=== PATIENT | male | born 1955 | race Two or more races ===

== ENCOUNTER 2019-12-15 14:30 | Emergency (ER) | payer MEDICARE, MEDICAID ==
[~2019-12-15] VITALS: Ht 170.2 cm; Wt 89.0 kg
[2019-12-15] MEDS ORDERED: ACETAMINOPHEN 325MG TABLET PO STA (15:32)
[2019-12-15] MEDS ORDERED: ASPIRIN 81MG TABLET PO ONE (15:45)
[2019-12-15 16:27] LABS: BASOPHILS % 1.3 % (0.0-2.0); EOSINOPHILS % 0.8 % (0.0-5.0); HEMATOCRIT. 45.7 % (42.0-52.0); HEMOGLOBIN. 15.6 g/dL (14.0-18.0); LYMPHOCYTES % 13.7 % (20.0-50.0); MEAN CORPUSCULAR HEMOGLOBIN 29.3 pg (28.0-32.0); MEAN CORPUSCULAR VOLUME 85.6 fL (80.0-94.0); MEAN PLATELET VOLUME 8.1 fl (7.4-10.4); MONOCYTES % 7.3 % (2.0-8.0); NEUTROPHILS % 76.9 % (40.0-76.0); PLATELET 280 x1000/uL (130-400); RED BLOOD CELL COUNT 5.34 mill/uL (4.7-6.1); RED CELL DISTRIBUTION WIDTH 14.2 % (11.6-14.6)
[2019-12-15 16:35] LABS: PROTHROMBIN TIME 10.4 sec (9.6-11.0)
[2019-12-15 16:38] LABS: CHLORIDE 105 mEq/L (98-107)
[2019-12-15 17:00] VITALS: BP 135/89
== END 2019-12-15 17:07 | disposition home or self-care (01) ==
LOC: ER 14:30
DX: R07.9 Chest pain, unspecified (principal); I10 Essential (primary) hypertension
CPT/HCPCS: 36415; 71045; 80053; 83880; 84484; 85025; 93005; 99284

== ENCOUNTER 2021-04-12 12:19 | Emergency (ER) | payer OTHER, MEDICAID ==
[~2021-04-12] VITALS: Ht 175.3 cm; Wt 96.0 kg
[2021-04-12] MEDS ORDERED: ASPIRIN 81MG TABLET PO ONE (12:45)
[2021-04-12] MEDS ORDERED: METOPROLOL TARTRATE 25MG TABLET PO ONE (12:45)
[2021-04-12] MEDS ORDERED: SODIUM CHLORIDE 0.9% 1,000 ML IV ONE (12:45)
[2021-04-12 12:46] VITALS: BP 129/98
[2021-04-12 12:56] LABS: BASOPHILS % 0.9 % (0.0-2.0); EOSINOPHILS % 4.1 % (0.0-5.0); HEMATOCRIT. 45.7 % (42.0-52.0); HEMOGLOBIN. 15.3 g/dL (14.0-18.0); LYMPHOCYTES % 16.8 % (20.0-50.0); MEAN CORPUSCULAR HEMOGLOBIN 29.3 pg (28.0-32.0); MEAN CORPUSCULAR VOLUME 87.4 fL (80.0-94.0); MONOCYTES % 6.6 % (2.0-8.0); NEUTROPHILS % 71.6 % (40.0-76.0); PLATELET 250 x1000/uL (130-400); RED BLOOD CELL COUNT 5.23 mill/uL (4.7-6.1); RED CELL DISTRIBUTION WIDTH 14.9 % (11.6-14.6)
[2021-04-12 13:03] LABS: CHLORIDE 106 mEq/L (98-107)
[2021-04-12 13:06] LABS: D-DIMER 0.19 mg/L FEU (<0.50); PARTIAL THROMBOPLASTIN TIME 26.1 sec (23.4-31.0); PROTHROMBIN TIME 10.6 sec (9.6-11.0)
== END 2021-04-12 14:35 | disposition left against medical advice (07) ==
LOC: ER 12:48
DX: R07.89 Other chest pain (principal); I47.1 Supraventricular tachycardia; I10 Essential (primary) hypertension
CPT/HCPCS: 36415; 71045; 80053; 83880; 84484; 85025; 85379; 85610; 85730; 93005; 96360; 99285; J7030

== ENCOUNTER 2021-05-24 17:21 | Inpatient (IN) | payer OTHER, MEDICAID ==
[~2021-05-24] VITALS: Ht 172.7 cm; Wt 105.2 kg
[2021-05-24 18:13] LABS: EOSINOPHILS % 5.2 % (0.0-5.0); HEMATOCRIT. 42.2 % (42.0-52.0); HEMOGLOBIN. 14.4 g/dL (14.0-18.0); LYMPHOCYTES % 17.5 % (20.0-50.0); MEAN CORPUSCULAR HEMOGLOBIN 29.5 pg (28.0-32.0); MEAN CORPUSCULAR VOLUME 86.5 fL (80.0-94.0); MEAN PLATELET VOLUME 8.2 fl (7.4-10.4); MONOCYTES % 7.5 % (2.0-8.0); NEUTROPHILS % 68.8 % (40.0-76.0); PLATELET 259 x1000/uL (130-400); RED BLOOD CELL COUNT 4.87 mill/uL (4.7-6.1); RED CELL DISTRIBUTION WIDTH 15.1 % (11.6-14.6)
[2021-05-24 18:18] LABS: CHLORIDE 100 mEq/L (98-107)
[2021-05-24 18:22] LABS: ETHANOL BLOOD < 10 mg/dL
[2021-05-24] MEDS ORDERED: ASPIRIN 81MG TABLET PO ONE (19:00)
[2021-05-24] MEDS ORDERED: ENOXAPARIN 100MG/ML SYR SUBCUT ONE (19:00)
[2021-05-25] VITALS (9 sets, daily range): BP systolic 135–164; BP diastolic 77–111
[2021-05-25] MEDS ORDERED: NITROGLYCERIN OINT 1GM/INCH UDPKT TD PRN (05:30)
[2021-05-25] MEDS ORDERED: ASPIRIN 325MG TABLET PO NR (05:30)
[2021-05-25] MEDS ORDERED: NITROGLYCERIN OINT 1GM/INCH UDPKT TD SCH (05:45)
[2021-05-25] MEDS: NITROGLYCERIN OINT 1GM/INCH UDPKT TD SCH ×3 (05:47→17:29)
[2021-05-25 05:52] LABS: CLARITY URINE CLEAR (CLEAR); COLOR URINE YELLOW (YELLOW); KETONES URINE TRACE (NEGATIVE); LEUKOCYTE ESTERASE URINE NEGATIVE (NEGATIVE); NITRITE URINE NEGATIVE (NEGATIVE); OCCULT BLOOD URINE NEGATIVE (NEGATIVE); PH URINE 5.5 (4.5-8.0); PROTEIN URINE NEGATIVE (NEGATIVE); SPECIFIC GRAVITY URINE 1.011 (1.005-1.030)
[2021-05-25 06:00] LABS: *AMPHETAMINES SCREEN URINE PRESUMTIVE POSITIVE (NEGATIVE); *BARBITURATES SCREEN URINE NEGATIVE (NEGATIVE); *BENZODIAZEPINES SCREEN URINE NEGATIVE (NEGATIVE); *COCAINE SCREEN URINE NEGATIVE (NEGATIVE); METHADONE URINE SCREEN NEGATIVE (NEGATIVE)
[2021-05-25 06:01] LABS: CANNABINOID URINE SCREEN PRESUMTIVE POSITIVE (NEGATIVE); OPIATES URINE SCREEN NEGATIVE (NEGATIVE); PHENCYCLIDINE URINE SCREEN NEGATIVE (NEGATIVE)
[2021-05-25] MEDS: DILTIAZEM HCL 60MG TABLET PO SCH ×3 (09:44→23:26)
[2021-05-25] MEDS ORDERED: OMEP20CA14 MT (11:36)
[2021-05-25] MEDS ORDERED: ASPI-1497 PO (11:36)
[2021-05-25] MEDS ORDERED: GABA-532 MT (11:36)
[2021-05-25] MEDS ORDERED: FAMO20TA8 MT (11:36)
[2021-05-25] MEDS ORDERED: METO-385 PO (11:36)
[2021-05-25] MEDS: FAMOTIDINE 20MG TABLET PO SCH (16:31)
[2021-05-25] MEDS: GABAPENTIN 300MG CAPSULE PO SCH (16:31)
[2021-05-25] MEDS: REGADENOSON 0.4 MG/5 ML IV SCH (17:30)
[2021-05-25] MEDS ORDERED: ENOXAPARIN 40MG/0.4ML SYR SUBCUT SCH (19:45)
[2021-05-25] MEDS: ENOXAPARIN 30MG/0.3ML SYR SUBCUT SCH (21:41)
[2021-05-26] VITALS (8 sets, daily range): BP systolic 136–167; BP diastolic 68–107
[2021-05-26] MEDS: DILTIAZEM HCL 60MG TABLET PO SCH (06:00)
[2021-05-26] MEDS: NITROGLYCERIN OINT 1GM/INCH UDPKT TD SCH ×4 (06:00→18:23)
[2021-05-26] MEDS: GABAPENTIN 300MG CAPSULE PO SCH ×2 (09:00→18:23)
[2021-05-26] MEDS ORDERED: ASPIRIN 81MG EC TABLET PO SCH (09:00)
[2021-05-26] MEDS: ENOXAPARIN 30MG/0.3ML SYR SUBCUT SCH (09:00)
[2021-05-26] MEDS ORDERED: OMEPRAZOLE 20MG CAPSULE EXTENDED RELEASE PO SCH (09:00)
[2021-05-26] MEDS: FAMOTIDINE 20MG TABLET PO SCH ×2 (09:00→18:23)
[2021-05-26] MEDS ORDERED: LIDOCAINE HCL 1% 20ML VIAL (Pyxis) INJ INFIL NR (09:30)
[2021-05-26] MEDS ORDERED: LIDOCAINE HCL 2% JELLY 5ML TOP NR (09:30)
[2021-05-26] MEDS: REGADENOSON 0.4 MG/5 ML IV SCH (10:30)
[2021-05-26] MEDS ORDERED: REGADENOSON 0.4 MG/5 ML IV ONE (10:48)
[2021-05-26] MEDS ORDERED: DILT120C88 PO (12:53)
[2021-05-26] MEDS ORDERED: MORPHINE SULFATE 2 MG/ML CPJ (NOT FOR IM USE) IV NR (13:30)
[2021-05-27] MEDS ORDERED: DILTIAZEM HCL 120MG CAPSULE CD 24HR PO SCH (09:00)
== END 2021-05-26 21:10 | disposition home or self-care (01) | DRG 264 ==
LOC: ER 17:21 → 3WST 20:57 → EDBEDREQ 21:17 → EDBEDREQTM 21:17 → EDBEDREQDT 05-25 00:30 → EDBEDREQSVC 05-25 00:30 → ENRESERV 05-25 02:10
PROVIDERS: ADMIT Internal Medicine; ATTEND Internal Medicine
PROC: 0JBR0ZZ Excision of Left Foot Subcutaneous Tissue and Fascia, Open Approach (ICD-10-PCS; principal; 2021-05-26)
DX: I47.1 Supraventricular tachycardia (principal); I21.A1 Myocardial infarction type 2; E87.1 Hypo-osmolality and hyponatremia; S91.342A Puncture wound with foreign body, left foot, initial encounter; E66.9 Obesity, unspecified; F10.10 Alcohol abuse, uncomplicated; F12.90 Cannabis use, unspecified, uncomplicated; Z20.822 Contact with and (suspected) exposure to COVID-19; X58.XXXA Exposure to other specified factors, initial encounter; F15.10 Other stimulant abuse, uncomplicated; F17.210 Nicotine dependence, cigarettes, uncomplicated; I10 Essential (primary) hypertension; Z68.35 Body mass index [BMI] 35.0-35.9, adult; Z71.3 Dietary counseling and surveillance; Y93.89 Activity, other specified; Y92.89 Other specified places as the place of occurrence of the external cause; Y99.8 Other external cause status; Z71.6 Tobacco abuse counseling
CPT/HCPCS: 36415; 71045; 73630; 76881; 78452; 80053; 80305; 80320; 81003; 83880; 84484; 85025; 85379; 87426; 93005; 93017; 93306; 93970; 99291; A9500; J1650; J2270; J2785; J3490; G0480